=== PATIENT | male | born 1980 | race Caucasian/White ===

== ENCOUNTER 2017-07-29 11:30 | Emergency (ER) | payer SELFPAY ==
[2017-07-29 11:37] VITALS: RESP 18
--- NOTE | 2017-07-29 11:47 | EDPHY ---
H & P Stated Complaint: cp/back pain/coughin up blood/pain/swelling l lower leg Time Seen by Provider: 07/29/17 11:47 HPI/ROS: HPI: This is a 36-year-old male who presents with Chief Complaint:left leg pain/swelling Location: Left calf Quality: Pain Duration: Week and half Signs and Symptoms: no fever, no nausea, no vomiting, no hematemesis, no blood in stool, no abdominal bloating, no diarrhea, no back pain, no urinary symptoms , no testicular/groin pain, no indigestion, no chest pain, no shortness of breath Timing: Acute Severity: Moderate Context: Patient reports that his father and uncle both have a history of DVTs , works in a restaurant, reports that he had gradual onset of worsening left calf pain that is nonradiating in nature. + tobacco user. No recent long distance travel. Denies any new fever/chills. Does comment that his left calf appears larger than his right calf. Modifying Factors: None Comment: ROS: see HPI Constitutional: No fever, no chills, no weight loss Eyes: No blurred vision Respiratory: No shortness of breath, no cough Cardiovascular: No chest pain, no palpitations Gastrointestinal: No nausea, no vomiting, no diarrhea, no hematemesis, no blood in stool Genitourinary: No dysuria, no blood in urine Extremities: No myalgias, no edema Neurologic: No weakness, no numbness Skin: No rashes, no petechiae Hematologic: No bruising, no bleeding MEDICAL/SURGICAL/SOCIAL HISTORY: Medical history: Gout Surgical history: Denies Social history: Tobacco use CONSTITUTIONAL: Extremely well-appearing 36-year-old male awake and alert, no obvious distress HEENT: Atraumatic and normocephalic, PERRL, EOMI. Tympanic membranes clear. Oropharynx clear, no exudate and moist pink mucosa. Airway patent. No lymphadenopathy. No meningismus. Cardiovascular: Normal S1/S2, regular rate, regular rhythm, without murmur rub or gallop. PULMONARY/CHEST: Symmetrical and nontender. Clear to auscultation bilaterally. Good air movement. No accessory muscle usage. ABDOMEN: Soft, nondistended, nontender, no rebound, no guarding, no peritoneal signs, no masses or organomegaly. No CVAT. EXTREMITIES: 2/2 pulses, strength 5/5, no deformities, no clubbing, no cyanosis. No pitting edema. Left calf twice the size of the right calf. Positive Homans sign. NEUROLOGICAL: no focal neuro deficits. GCS 15. SKIN: Warm and dry, no erythema. no rash. Good capillary refill. Source: Patient Exam Limitations: No limitations - Personal History Current Tetanus/Diphtheria Vaccine: Unsure - Medical/Surgical History Hx Asthma: No Hx Chronic Respiratory Disease: No Hx Diabetes: No Hx Cardiac Disease: No Hx Renal Disease: No Hx Cirrhosis: No Hx Alcoholism: No Hx HIV/AIDS: No Hx Splenectomy or Spleen Trauma: No Other PMH: gout - Social History Smoking Status: Current every day smoker Constitutional: Initial Vital Signs Temperature (C) 36.7 C 07/29/17 11:34 Heart Rate 98 07/29/17 11:34 Respiratory Rate 18 07/29/17 11:34 Blood Pressure 143/108 H 07/29/17 11:34 O2 Sat (%) 94 07/29/17 11:34 O2 Delivery Mode Room Air Allergies/Adverse Reactions: No Known Allergies Allergy (Verified 07/29/17 11:32) Home Medications: Medication Instructions Recorded Allopurinol 07/29/17 Apixaban [Eliquis] 10 mg PO BID 30 Days tab 07/29/17 Medical Decision Making - Diagnostics Imaging Results: Imaging Impressions Extremity Venous Study 07/29/17 12:15 Impression: Left lower extremity deep vein thrombosis extending from the proximal femoral vein distally to involve the deep veins of the calf. Findings and recommendations discussed with Merlene Noel at 1:21 PM hour, 07/29. ED Course/Re-evaluation: Labs, EKG, left lower extremity ultrasound ordered Vital signs stable upon arrival no signs of respiratory distress/hypoxia Labs reviewed and grossly unremarkable. EKG shows no acute ischemic changes or arrhythmia. Called by radiologist who advised that left lower extremity ultrasound is positive for DVT; nonocclusive Given Eliquis. Patient does not have insurance; case management consult; given free 30 day supply and no co-pay; referred to Medicaid No signs of neurovascular compromise/tenting of skin/compartment syndrome/ extremities and joints examined above and below area of concern and are neurovascularly intact/thrombophlebitis. Ambulatory without pain. Hemodynamically stable tree as outpatient. This patient was seen under the supervision of my primary supervising physician. I evaluated care for this patient independently. Differential Diagnosis: Leg swelling including but not limited to hypoalbuminemia, congestive heart failure, cor pulmonale, chronic venous stasis and DVT. - Data Points Laboratory Results: Laboratory Results 07/29/17 12:10 07/29/17 12:10 07/29/17 07/29/17 07/29/17 12:10 12:10 12:10 WBC 11.13 10^3/uL H 10^3/uL (3.80-9.50) RBC 5.97 10^6/uL 10^6/uL (4.40-6.38) Hgb 17.9 g/dL H g/dL (13.7-17.5) Hct 52.8 % H % (40.0-51.0) MCV 88.4 fL fL (81.5-99.8) MCH 30.0 pg pg (27.9-34.1) MCHC 33.9 g/dL g/dL (32.4-36.7) RDW 14.1 % % (11.5-15.2) Plt Count 321 10^3/uL 10^3/uL (150-400) MPV 9.7 fL fL (8.7-11.7) Neut % (Auto) 71.6 % % (39.3-74.2) Lymph % (Auto) 17.4 % % (15.0-45.0) [place] % (Auto) 8.5 % % (4.5-13.0) Eos % (Auto) 0.7 % % (0.6-7.6) Baso % (Auto) 0.6 % % (0.3-1.7) Nucleat RBC Rel Count 0.0 % % (0.0-0.2) Absolute Neuts (auto) 7.96 10^3/uL H 10^3/uL (1.70-6.50) Absolute Lymphs (auto) 1.94 10^3/uL 10^3/uL (1.00-3.00) Absolute Monos (auto) 0.95 10^3/uL H 10^3/uL (0.30-0.80) Absolute Eos (auto) 0.08 10^3/uL 10^3/uL (0.03-0.40) Absolute Basos (auto) 0.07 10^3/uL 10^3/uL (0.02-0.10) Absolute Nucleated RBC 0.00 10^3/uL 10^3/uL (0-0.01) Immature Gran % 1.2 % H % (0.0-1.1) Immature Gran # 0.13 10^3/uL H 10^3/uL (0.00-0.10) PT 14.3 SEC SEC (12.0-15.0) INR 1.09 (0.83-1.16) APTT 29.5 SEC SEC (23.0-38.0) Sodium 145 mEq/L mEq/L (135-145) Potassium 4.0 mEq/L mEq/L (3.5-5.2) Chloride 106 mEq/L mEq/L (97-110) Carbon Dioxide 25 mEq/l mEq/l (22-31) Anion Gap 14 mEq/L mEq/L (8-16) BUN 9 mg/dL mg/dL (7-23) Creatinine 0.7 mg/dL mg/dL (0.7-1.3) Estimated GFR > 60 Glucose 92 mg/dL mg/dL (70-100) Uric Acid 6.0 mg/dL mg/dL (3.5-8.5) Calcium 9.1 mg/dL mg/dL (8.5-10.4) Total Bilirubin 1.5 mg/dL H mg/dL (0.1-1.4) AST 18 IU/L IU/L (17-59) ALT 27 IU/L IU/L (21-72) Alkaline Phosphatase 71 IU/L IU/L (38-126) Troponin I 0.016 ng/mL ng/mL (0.000-0.034) Total Protein 6.4 g/dL g/dL (6.3-8.2) Albumin 3.4 g/dL L g/dL (3.5-5.0) TSH 3.770 uIU/mL uIU/mL (0.465-4.680) Departure - Departure Disposition: Home, Routine, Self-Care Clinical Impression: Deep venous thrombosis of left femoral vein Qualifiers: Chronicity: acute Qualified Code(s): I82.412 - Acute embolism and thrombosis of left femoral vein Condition: Good Instructions: Deep Vein Thrombosis (ED), Apixaban (By mouth) Additional Instructions: Establish care at [facility] in 1-2 weeks. Take medication as directed for DVT. You will need to take this medication for a minimum of 3 months. Wear compression stockings. Referrals: [facility],. [Clinic] - As per Instructions Prescriptions: Apixaban [Eliquis] 10 mg PO BID 30 Days tab
--- NOTE | 2017-07-29 12:10 | CPEKG ---
Heart Rate: 85 RR Interval: 706 P-R Interval: 152 QRSD Interval: 90 QT Interval: 392 QTC Interval: 467 P [place]: 76 QRS [place]: -62 T Wave [place]: -6 EKG Severity - ABNORMAL ECG - EKG Impression: SINUS RHYTHM EKG Impression: LAD, CONSIDER LEFT ANTERIOR FASCICULAR BLOCK EKG Impression: BORDERLINE T ABNORMALITIES, ANTERIOR LEADS Electronically Signed By: Antonio Mahoney 31-Jul-2017 12:33:33
[2017-07-29 12:20] LABS: PLATELET COUNT 321 10^3/uL (150-400)
[2017-07-29 12:52] LABS: INR 1.09 (0.83-1.16); PROTIME(PATIENT) 14.3 SEC (12.0-15.0)
[2017-07-29] MEDS ORDERED: APIXABAN 5 MG TAB PO ONE (14:13)
[2017-07-29 14:43] VITALS: BP 120/85; PULSE 85; TEMP 98.4; O2SAT 95
--- NOTE | 2017-07-29 16:56 | ASDISCHSUM ---
Discharge Information Plan Status:Home with No Needs Medically Cleared to Leave: Discharge Date:07/29/2017 02:43 PM CM D/C Disposition:Home, Routine, Self-Care ADT D/C Disposition:Home, Routine, Self-Care Projected Discharge Date:07/29/2017 02:43 PM Transportation at D/C:Family Discharge Delay Reason: Follow-Up Date:07/29/2017 02:43 PM Discharge Slot: Final Diagnosis: Placement Information Patient Contact Information Contact Name:JORDYN Relationship: Address: Work Phone: City: [facility] Phone: State/Zip Code: Email: Financial Information Financial Class:Self-Pay Primary Plan Desc:SELF PAY Primary Plan Number: Secondary Plan Desc: Secondary Plan Number: Assessment Information [facility] CM Progress Note CM Note CM Note Notes: Pt diagnosed with lower leg DVT. Requested to assist patient with necessary medication assistance since pt does not have insurance. Pt provided a Free 30-day trial card for EliquFPSI and also provided an [employer] $10 co-pay card for his 2nd and 3rd month supplies. Spoke with Herlinda Cannon and requested patient be screened for Medicaid; Herlinda spoke with pt and he does not qualify due to personal income. Patient works at a local [employer] and states his employer doesn't provide health insurance and he can't afford it otherwise. Herlinda states she provided pt with CICP application and pt stated he is aware of program. Patient doesn'r have a PCP so referred to [facility]. Pt was able to get an appt on 08/03/17 for follow up. CM available for further assistance if necessary. Date Signed: 07/29/2017 04:53 PM Electronically Signed By:Rain Marte RN Intervention Information Intervention Type:Health Clinic Date of Service:07/29/2017 04:54 PM Patient Type:Emergency Room Staff Member:CONRADO Marte [place] Hours:0.25 Discipline:Account Retention Representative Severity: Comment:[facility] appointment Intervention Type:Financial Counseling Date of Service:07/29/2017 04:54 PM Patient Type:Emergency Room Staff Member:CONRADO Marte [place] Hours:0.25 Discipline:Account Retention Representative Severity: Comment:Herlinda roca/ Kassandra chavez pt
== END 2017-07-29 14:43 | disposition home or self-care (01) ==
DX: I82.412 Acute embolism and thrombosis of left femoral vein (principal); F17.200 Nicotine dependence, unspecified, uncomplicated